=== PATIENT | female | born 1955 | race Caucasian/White ===

== ENCOUNTER 2024-08-19 14:03 | Inpatient (IN) | payer MEDICARE, OTHER, SELFPAY ==
[2024-08-19] VITALS (46 sets, daily range): BP systolic 105–142; BP diastolic 66–110; BMI 22.0
[2024-08-19 09:48] LABS: COVID-19 Antigen Positive (Negative)
[2024-08-19 09:54] LABS: % Basophils 0.3 % (0-2); % Eosinophils 0.9 % (0-6); % Immature Granulocytes 0.2 % (0-0.5); % Lymphocytes 29.4 % (20.5-51.1); % Monocytes 14.3 % (1.7-9.3); % Neutrophils 54.9 % (42.2-75.2); Absolute Eosinophils 0.1 10^3/uL (0-0.7); Absolute Lymphocytes 1.9 10^3/uL (1.2-3.4); Absolute Monocytes 0.9 10^3/uL (0.1-0.6); Absolute Neutrophils 3.5 10^3/uL (1.4-6.5); Hemoglobin 12.1 g/dL (12.0-16.0); Mean Corp Hgb Conc. 32.7 g/dL (33.0-37.0); Mean Corpuscular Hgb 24.7 pg (27.0-31.0); Mean Corpuscular Volume 75.5 fL (81.0-99.0); Mean Platelet Volume 9.4 fL (7.4-10.4); Nucleated Red Blood Cells % 0 %; Platelet Count 198 10^3/uL (130-400); Red Cell Dist. Width 16.5 % (11.5-14.5); White Blood Cell Count 6.4 10^3/uL (4.8-10.8)
[2024-08-19 09:58] LABS: ALT (SGPT) 39 U/L (0-35); AST (SGOT) 65 U/L (14-36); Albumin 3.3 g/dl (3.5-5.0); Alkaline Phosphatase 376 U/L (38-126); Blood Urea Nitrogen 16 mg/dl (7-17); Calcium 9.2 mg/dl (8.4-10.2); Carbon Dioxide 23 mmol/L (22-30); Chloride 101 mmol/L (98-107); Glucose 107 mg/dl (70-99); Potassium 3.9 mmol/L (3.5-5.1); Sodium 136 mmol/L (135-145); Total Protein 6.4 g/dl (6.3-8.2); eGFR > 60.00
--- NOTE | 2024-08-19 11:40 | ED.GENMED ---
History of Present Illness
<Arnel Rivers PA-C - Last Filed: 08/19/24 13:21>
General
Chief Complaint: Cold/Flu/URI Symptoms
Source: patient
Time Seen by Provider: 08/19/24 10:49
History of Present Illness
History of Present Illness:
69-year-old female with past medical history of iron deficiency anemia and rheumatoid arthritis presenting to the ER with URI-like symptoms over the last 4 weeks, continuous cough which is what prompted her to come to the ER for further evaluation.
notes that at nighttime patient seems to have a gurgling sound while she is breathing. Patient is unaware of any fevers and is otherwise denying any chest pain, shortness of breath, palpitations, sputum production, hemoptysis, lower
extremity edema or any other concerns. Patient did not do any home testing, had been sick previously with similar symptoms but his current recovered.
Past History
<Arnel Rivers PA-C - Last Filed: 08/19/24 13:21>
Past History
ED Past Medical History: Other (Rheumatoid arthritis, iron deficiency anemia)
Review of Systems
<Arnel Rivers PA-C - Last Filed: 08/19/24 13:21>
Review of Systems
All Other Systems: ROS reviewed and negative except as documented in HPI and ROS
Phy Exam
<Arnel Rivers PA-C - Last Filed: 08/19/24 13:21>
Physical Exam
Physical Exam:
GENERAL: Alert , in no apparent distress
HEAD: Normocephalic atraumatic
EYE: clear conjunctiva,
NECK: Supple, no significant adenopathy.
ENT: o/p clr, mmm.
CARDIAC: Tachycardic rate and rhythm, irregular.
LUNGS: Clear breath sounds bilaterally, no acute respiratory distress, no wheezes/rales/rhonchi, persistent nonproductive cough
ABDOMEN: Soft, without focal tenderness, no r/g, no cvat
NEUROLOGICAL: Alert and oriented
SKIN: Warm and dry, skin intact.
MUSCULOSKELETAL: No edema, well perfused.
PSYCH: Normal and appropriate interaction.
Scores
<Arnel Rivers PA-C - Last Filed: 08/19/24 13:21>
[id number] Score for Afib Stroke Risk
Age in Years (65=0, 65-74=1, >/=75=2): 65-74
Sex (Female=+1): Female
Congestive Heart Failure History (Yes=+1): No
Hypertension History (Yes=+1): No
Stroke/TIA/Thromboembolism History (Yes=+2): No
Vascular Disease History (Yes=+1): No
Diabetes Mellitus (Yes=+1): No
Score: 2
Anticoagulation Recommendations: Recommend anticoagulation (as validated in nonvalvular fib)
Heart Failure Risk
Heart Failure Risk Score: Not Applicable
Heart Score for Chest Pain Patients
STEMI patient?: Not applicable
Withdrawal Assessment of Alcohol
Withdrawal Assessment Completed?: Not applicable
<Ray De Jesus MD - Last Filed: 08/19/24 15:29>
[id number] Score for Afib Stroke Risk
Score: 2
Anticoagulation Recommendations: Recommend anticoagulation (as validated in nonvalvular fib)
Course
<Arnel Rivers PA-C - Last Filed: 08/19/24 13:21>
Orders/Labs/Results
Orders:
Orders
08/19/24 09:22
Electrocardiogram (*1) Urgent
Reason for Study: Abdominal Pain
EKG- Treatment ONCE
08/19/24 09:30
COVID-19 Antigen Urgent
Source: Nasal Swab
Complete Blood Count/With Diff Urgent
Comprehensive Metabolic Panel Urgent
Free T4 Urgent
Hepatitis C Antibody Urgent
Comment: ADD ONB
LDH Urgent
Comment: ADD ON
TSH Reflex To Free T4 Urgent
Comment: ADD ON
Influenza A+B Rapid Molecular Urgent
YULISSA Source: Nasal Swab
Specimen Description:
08/19/24 10:49
CR Chest - 2 Views Urgent
Comment:
Reason For Exam: cough x 4 weeks
08/19/24 11:01
Electrocardiogram (*1) Urgent
Reason for Study: Atrial Fibrillation
EKG- Treatment ONCE
08/19/24 11:37
Diltiazem 125 mg/125 ml Nss [Cardizem] 125 mg in 125 ml IV NOW
Initial dose in mg/hr, then titrate:: 5
Titrate to keep:: Heart rate 80-100 bpm
Titrate by mg/hr:: 5 mg/hr
Frequency of titrations (minutes):: 15
Maximum dose in mg/hr:: 15
Diltiazem HCl [Cardizem] 5 mg IV NOW STA
08/19/24 11:45
NT-proBNP Urgent
08/19/24 12:00
0.9% Sodium Chloride 500 ml [Nss] 500 ml IV BOLUS
Acetaminophen [Tylenol] 1,000 mg PO NOW STA
08/19/24 12:01
0.9% Sodium Chloride 500 ml [Nss] 500 ml IV BOLUS
08/19/24 12:50
US Abdomen Complete/Upper Urgent
Comment:
Reason For Exam: elevated alk.phos, transaminitis, bilirubinemia
08/19/24 12:54
Diltiazem HCl [Cardizem] 10 mg IV NOW STA
08/19/24 13:08
Direct Bilirubin Stat
GGT [GGTP] Stat
Procalcitonin Stat
PCT Algorithmm Indication: Respiratory
08/19/24 13:10
Add On- LAB Urgent
Tests Added?: LDH, HepC Ab
CARDIOLOGY CONSULT Routine
Consulting Provider: Jethro Tai
Was physician already notified: Yes
Reason for consult: Afib with RVR
08/19/24 13:11
Admit/Transfer Patient As Directed
Co-Sign Provider:
Level of Care: Inpatient admission
Assign to:: IVU
Physician / Group: Hospitalist
Diagnosis: Afib with RVR
Reason for Hospitalization: Afib with RVR
Expected length of stay greater than two midnights?: Yes
ELOS- Estimated Length of Stay in days: 5
I certify the patient meets the requirements for IP care: Yes
PRN Pain Medication Management As Directed
May give lesser potent ordered pain med per pt: Yes
preference::
Protocol:: Medication orders for pain may be administered in a
manner that supports deferring to patient preference
when the pt is:
- Requesting an ordered lesser potent pain medication.
Least to most potent pain medications are defined
as: acetaminophen < NSAID < tramadol < opioids
(morphine, oxycodone, hydromorphone).
- Requesting a lesser dose of the same medication IF
ORDERED.
- Requesting a less intrusive route of administration
if both routes are prescribed by the provider (PO <
IV).
08/19/24 13:12
Code Status As Directed
Resuscitation Status: Do not resuscitate
Reached after discussion with pt or family/Healthcare POA: Yes
08/19/24 13:14
DNR Bracelet Application ONCE
08/19/24 13:16
Add On- LAB Stat
Tests Added?: TSH with reflex FT4
08/19/24 13:19
Add On- LAB Urgent
Tests Added?: troponin
Ipratropium/Albuterol Sulfate [Duoneb] 3 ml INH R Q4HPRN PRN
08/19/24 14:00
Flush (0.9% Sodium Chloride) [Flush (Nss)] See Dose Instructions IV PER PROTOCOL
MethylPREDNISolone PF [Solu-Medrol Pf] 40 mg IV Q12H
08/19/24 16:00
Ipratropium/Albuterol Sulfate [Duoneb] 3 ml INH R QID
08/19/24 19:30
Troponin I Q6H
08/20/24 01:30
Troponin I Q6H
08/20/24 07:30
Troponin I Q6H
Abnormal Lab Results
08/19/24 08/19/24
09:30 13:08
MCV 75.5 L fL
(81.0-99.0)
MCH 24.7 L pg
(27.0-31.0)
MCHC 32.7 L g/dL
(33.0-37.0)
RDW 16.5 H %
(11.5-14.5)
Absolute Monos (auto) 0.9 H 10^3/uL
(0.1-0.6)
Monocytes % 14.3 H %
(1.7-9.3)
Creatinine 0.4 L mg/dL
(0.6-1.0)
Glucose 107 H mg/dl
(70-99)
Total Bilirubin 3.0 H mg/dl
(0.2-1.3)
Direct Bilirubin 1.3 H mg/dl
(0.0-0.4)
GGT 76 H U/L
(12-43)
AST 65 H U/L
(14-36)
ALT 39 H U/L
(0-35)
Alkaline Phosphatase 376 H U/L
(38-126)
Albumin 3.3 L g/dl
(3.5-5.0)
TSH (Reflex) < 0.02 L uIU/ml
(0.47-4.68)
SARS-CoV-2 Antigen Positive A
(Negative)
08/19/24 09:30
08/19/24 09:30
Vital Signs
Initial and Last Documented VS:
Initial Vital Signs
Temp Pulse Resp BP Pulse Ox
98.1 F 105 16 113/84 98
08/19/24 09:20 08/19/24 09:20 08/19/24 09:20 08/19/24 09:20 08/19/24 09:20
Last Documented Vital Signs
Temp Pulse Resp BP Pulse Ox
98.1 F 146 20 129/79 92
08/19/24 09:20 08/19/24 15:15 08/19/24 15:15 08/19/24 15:15 08/19/24 15:15
<Ray De Jesus MD - Last Filed: 08/19/24 15:29>
Orders/Labs/Results
Orders:
Orders
08/19/24 09:22
Electrocardiogram (*1) Urgent
Reason for Study: Abdominal Pain
EKG- Treatment ONCE
08/19/24 09:30
COVID-19 Antigen Urgent
Source: Nasal Swab
Complete Blood Count/With Diff Urgent
Comprehensive Metabolic Panel Urgent
Free T4 Urgent
Hepatitis C Antibody Urgent
Comment: ADD ONB
LDH Urgent
Comment: ADD ON
TSH Reflex To Free T4 Urgent
Comment: ADD ON
Influenza A+B Rapid Molecular Urgent
YULISSA Source: Nasal Swab
Specimen Description:
08/19/24 10:49
CR Chest - 2 Views Urgent
Comment:
Reason For Exam: cough x 4 weeks
08/19/24 11:01
Electrocardiogram (*1) Urgent
Reason for Study: Atrial Fibrillation
EKG- Treatment ONCE
08/19/24 11:37
Diltiazem 125 mg/125 ml Nss [Cardizem] 125 mg in 125 ml IV NOW
Initial dose in mg/hr, then titrate:: 5
Titrate to keep:: Heart rate 80-100 bpm
Titrate by mg/hr:: 5 mg/hr
Frequency of titrations (minutes):: 15
Maximum dose in mg/hr:: 15
Diltiazem HCl [Cardizem] 5 mg IV NOW STA
08/19/24 11:45
NT-proBNP Urgent
08/19/24 12:00
0.9% Sodium Chloride 500 ml [Nss] 500 ml IV BOLUS
Acetaminophen [Tylenol] 1,000 mg PO NOW STA
08/19/24 12:01
0.9% Sodium Chloride 500 ml [Nss] 500 ml IV BOLUS
08/19/24 12:50
US Abdomen Complete/Upper Urgent
Comment:
Reason For Exam: elevated alk.phos, transaminitis, bilirubinemia
08/19/24 12:54
Diltiazem HCl [Cardizem] 10 mg IV NOW STA
08/19/24 13:08
Direct Bilirubin Stat
GGT [GGTP] Stat
Procalcitonin Stat
PCT Algorithmm Indication: Respiratory
08/19/24 13:10
Add On- LAB Urgent
Tests Added?: LDH, HepC Ab
CARDIOLOGY CONSULT Routine
Consulting Provider: Jethro Tai
Was physician already notified: Yes
Reason for consult: Afib with RVR
08/19/24 13:11
Admit/Transfer Patient As Directed
Co-Sign Provider:
Level of Care: Inpatient admission
Assign to:: IVU
Physician / Group: Hospitalist
Diagnosis: Afib with RVR
Reason for Hospitalization: Afib with RVR
Expected length of stay greater than two midnights?: Yes
ELOS- Estimated Length of Stay in days: 5
I certify the patient meets the requirements for IP care: Yes
PRN Pain Medication Management As Directed
May give lesser potent ordered pain med per pt: Yes
preference::
Protocol:: Medication orders for pain may be administered in a
manner that supports deferring to patient preference
when the pt is:
- Requesting an ordered lesser potent pain medication.
Least to most potent pain medications are defined
as: acetaminophen < NSAID < tramadol < opioids
(morphine, oxycodone, hydromorphone).
- Requesting a lesser dose of the same medication IF
ORDERED.
- Requesting a less intrusive route of administration
if both routes are prescribed by the provider (PO <
IV).
08/19/24 13:12
Code Status As Directed
Resuscitation Status: Do not resuscitate
Reached after discussion with pt or family/Healthcare POA: Yes
08/19/24 13:14
DNR Bracelet Application ONCE
08/19/24 13:16
Add On- LAB Stat
Tests Added?: TSH with reflex FT4
08/19/24 13:19
Add On- LAB Urgent
Tests Added?: troponin
Ipratropium/Albuterol Sulfate [Duoneb] 3 ml INH R Q4HPRN PRN
08/19/24 14:00
Flush (0.9% Sodium Chloride) [Flush (Nss)] See Dose Instructions IV PER PROTOCOL
MethylPREDNISolone PF [Solu-Medrol Pf] 40 mg IV Q12H
08/19/24 16:00
Ipratropium/Albuterol Sulfate [Duoneb] 3 ml INH R QID
08/19/24 19:30
Troponin I Q6H
08/20/24 01:30
Troponin I Q6H
08/20/24 07:30
Troponin I Q6H
Abnormal Lab Results
08/19/24 08/19/24
09:30 13:08
MCV 75.5 L fL
(81.0-99.0)
MCH 24.7 L pg
(27.0-31.0)
MCHC 32.7 L g/dL
(33.0-37.0)
RDW 16.5 H %
(11.5-14.5)
Absolute Monos (auto) 0.9 H 10^3/uL
(0.1-0.6)
Monocytes % 14.3 H %
(1.7-9.3)
Creatinine 0.4 L mg/dL
(0.6-1.0)
Glucose 107 H mg/dl
(70-99)
Total Bilirubin 3.0 H mg/dl
(0.2-1.3)
Direct Bilirubin 1.3 H mg/dl
(0.0-0.4)
GGT 76 H U/L
(12-43)
AST 65 H U/L
(14-36)
ALT 39 H U/L
(0-35)
Alkaline Phosphatase 376 H U/L
(38-126)
Albumin 3.3 L g/dl
(3.5-5.0)
TSH (Reflex) < 0.02 L uIU/ml
(0.47-4.68)
SARS-CoV-2 Antigen Positive A
(Negative)
08/19/24 09:30
08/19/24 09:30
Vital Signs
Initial and Last Documented VS:
Initial Vital Signs
Temp Pulse Resp BP Pulse Ox
98.1 F 105 16 113/84 98
08/19/24 09:20 08/19/24 09:20 08/19/24 09:20 08/19/24 09:20 08/19/24 09:20
Last Documented Vital Signs
Temp Pulse Resp BP Pulse Ox
98.1 F 146 20 129/79 92
08/19/24 09:20 08/19/24 15:15 08/19/24 15:15 08/19/24 15:15 08/19/24 15:15
<Arnel Rivers PA-C - Last Filed: 08/19/24 13:21>
MDM/Problems Addressed
Differential Diagnosis Includes:
COVID, flu, RSV, other viral etiology, pneumonia, EKG done in triage shows atrial fibrillation with rapid ventricular rate
MDM/Problems Addressed:
69-year-old female presenting to the ER for upper respiratory like symptoms over the last 4 weeks, not improving at home noting a continued today. Labs and COVID/flu testing were initiated in triage and patient did test positive for COVID. She
also was found to be in a new onset atrial fibrillation with rapid ventricular rate. I do suspect her COVID infection is the likely culprit. Due to her tachycardia decision was made to rate control with Cardizem. Patient also has a mild
transaminitis which is likely also related to her COVID infection. Chest x-ray does show trace right pleural effusion. 500 cc fluid bolus ordered for additional rate control. Plan to admit for further evaluation and cardiology consultation.
Patient was also noting left shoulder pain which is secondary to her rheumatoid arthritis and requesting something for pain. 1 g of Tylenol ordered. Will avoid NSAIDs due to newly diagnosed A-fib and patient will likely need some form of
anticoagulation.
<Arnel Rivers PA-C - Last Filed: 08/19/24 13:21>
*Radiology
Radiology exam reviewed: radiology read reviewed
*Pulse Oximetry
Patient hypoxic: no
*EKG
Interpreted by ED Provider?: Yes
Heart Rate: 178
Rate: tachycardiac
Rhythm: a-fib
[place]: normal axis
*[employer] Operator Interpretation
Rate: tachycardiac
Rhythm: a-fib
*Critical Care Note
Total Time (30-74mins, 75-104mins- exclusive of procedures): 30
comment:
Critical care statement: A total of 30 minutes of critical care time was provided for this patient. This includes management of unstable vital signs, evaluation of the patient at bedside, reviewing the patient's pertinent medical records, discussion
with consultants, review of old EKGs and review of pertinent medical records. This time with separate from time utilized to perform the aforementioned documented procedures
<Arnel Rivers PA-C - Last Filed: 08/19/24 13:21>
Patient Management
Discussion with other providers: Hospitalist
Escalation/DeEscalation of care consider admission/obs:
Hospitalist team accepts for continued evaluation and treatment
ED Attending Note
<Arnel Rivers PA-C - Last Filed: 08/19/24 13:21>
-
Portions of this chart may have been created with voice recognition software.� Occasional wrong word or��sound alike� substitutions may have occurred due to the inherent limitations of voice recognition software.
<Ray De Jesus MD - Last Filed: 08/19/24 15:29>
ED Attending Note
Patient seen and examined by attending physician: Yes
ED Attending Note:
Patient presents to ED secondary to 1 month history of cold-like symptoms, consisting of persistent cough with decreased appetite. Denies fever or chills. Denies nausea, vomiting, or diarrhea. Denies chest pain. Denies chest palpitations.
Denies dizziness. Patient's also has similar symptoms, which now has resolved. Upon arrival in ED, patient is found to be in rapid atrial fibrillation.
COVID-19 test positive.
Chest x-ray report reviewed.
Patient given IV fluid bolus along with Cardizem bolus followed by infusion, with mild improvement heart rate. Patient's new onset rapid atrial fibrillation, likely secondary to ongoing URI with component of dehydration. Will defer anticoagulation
to admitting team.
Critical care statement: A total of 40 minutes of critical care time was provided for this patient. This includes management of unstable vital signs, evaluation of the patient at bedside, reviewing the patient's pertinent medical records, review of
old EKGs and review of pertinent medical records. This time with separate from time utilized to perform the aforementioned documented procedures
Discharge Plan
Departure
Patient Disposition: Admit
Date of Disposition: 08/19/24
Time of Disposition: 11:40
Presentation/result/management discussed w/ accepting MD/DO: Hospitalist
Discharge Problem:
Atrial fibrillation with RVR, Transaminitis, COVID-19
Interventions
Interventions:
*Risk Screen - Suicide Last Done: 08/19/24 09:20
*General Assessment Last Done: 08/19/24 11:33
*Neglect/Abuse Screening Last Done: 08/19/24 09:20
ED- Fall Risk Assessment Last Done: 08/19/24 11:33
*ED COVID-19 Vaccine History Last Done: 08/19/24 11:33
ED- Pulmonary Assessment Last Done: 08/19/24 11:33
[2024-08-19] MEDS: CARDIZEM 5 MG IV (11:46)
[2024-08-19] MEDS: CARDIZEM 125 IV ×2 (11:47→22:16)
[2024-08-19] MEDS: NSS 500 IV (12:02)
[2024-08-19] MEDS: TYLENOL 1000 MG PO (12:02)
[2024-08-19 12:19] LABS: NT-proBNP 1340 pg/ml
[2024-08-19] MEDS: CARDIZEM 10 MG IV (13:11)
--- NOTE | 2024-08-19 13:16 | HPS.HSE ---
Addendum entered and electronically signed by Carlos Kate MD 08/19/24 16:33:
#Thyroid storm
[address] 71
Methimazole, cont steroids, propranolol
Endo consult
Original Note:
Family Physician
-
Family Physician: Celia Daly
Chief Complaint
-
cough
History of Present Illness
69yo F with PMHx of cholecystectomy, RA not on any meds came with 4 weeks of generalized weakness, cough, initially with fevers. Now still significant mucus production. no chest pain reported. FOund with Wale in ED. COVID-19 test also positive
Medical History
Past Medical History
Past Medical History: Reports Other (see HPI)
Past Surgical History: Reports Other
Additional Past Surgical History:
See HPI
Social History
Tobacco: Non-smoker
Alcohol: None
Drug: None
Family History
Family History: Not pertinent
Allergies / Home Medications
Allergies reflects when Allergies were last updated in [facility].
Home Medications with original date entered in [facility]
Allergy/Medication List:
Allergies
Allergy/AdvReac Type Severity Reaction Status Date / Time
cephalexin Allergy Hives Verified 08/19/24 09:19
infliximab Allergy Hives Verified 08/19/24 09:19
Home Medications
No Meds [No Current Medications] 08/19/24
Review of Systems
-
History Source: Patient
A 12 point ROS was completed and negative except as noted: Yes
Respiratory: Reports See HPI
Cardiac: Denies Chest Pain or Palpitations
Physical Exam
Vital Signs
Vital Signs
Temp Pulse Resp BP Pulse Ox
98.1 F 157 25 142/82 95
08/19/24 09:20 08/19/24 12:15 08/19/24 12:15 08/19/24 12:15 08/19/24 12:15
Physical Exam
General: No Apparent Distress
HEENT: NormoCephalic
Respiratory: Decreased Breath Sounds (b/l)
Cardiac: S1/S2, Irregular Rhythm and Tachycardia
GI: Soft, Non Tender and Non Distended
Genito-urinary: No costovertebral tender
Musculoskeletal: No Clubbing, No Cyanosis and No Edema
Skin: Warm; No Dry or Rash
Neuro: Awake, Alert, Oriented and AO x 3
Psych: Calm
Laboratory Results
-
08/19/24 09:30
08/19/24 09:30
Laboratory Results
Total Bilirubin 3.0 mg/dl (0.2-1.3) H 08/19/24 09:30
AST 65 U/L (14-36) H 08/19/24 09:30
ALT 39 U/L (0-35) H 08/19/24 09:30
Alkaline Phosphatase 376 U/L (38-126) H 08/19/24 09:30
Data Reviewed
-
Diagnostic Radiology: Report Reviewed by me
Lab Data: Labs Reviewed by me
Impression/Plan
-
A/P:
#New onset Afib with RVR
stareted cardizem drip, if poor control - might need amiodarone
Add heparin drip
Cardiology consult
telemetry, Echo
serial troponin
Elevated proBNP to 1340, but with marginal low BP - possibly congestion 2/2 Afib. Will not start Lasix until HR controlled
Influenza neg
check TSH
#COVID-19 with cough and reactive airway disease
without pneumonia on XR
unclear start date, will not start paxlovid
check procalcitonin
start steroids, bronchodilators, antitussives and mucolytics
#Hx of RA
in remission not on meds
#microcytosis
check iron studies
#Elevated alk.phos
#Transaminitis
#Bilirubinemia
suspect 2/2 viral disease
check direct bili, LDH, RUQ US,HepC Ab
patient without RUQ pain
follow LFT
DVT ppx hep drip
DNR/DNI - discussed in details with patient
I have spent at least 78min admitting the patient, reviewing chart, test results, communication with consultants and direct patient care
[2024-08-19 13:39] LABS: Direct Bilirubin 1.3 mg/dl (0.0-0.4); GGTP 76 U/L (12-43)
[2024-08-19 13:43] LABS: LDH 216 U/L (120-246)
--- NOTE | 2024-08-19 13:43 | CON.CAR ---
Addendum entered and electronically signed by Jethro Tai MD 08/19/24 16:59:
I saw and examined the patient.
The RATE ENGINEER's note was reviewed and I agree with the note.
Comment: New AFib RVR in setting of COVID-19 infection (w/o pneumonia) and newly found labs c/w hyperthyroidism. Not dramatically symptomatic from the fast AFib.
Suggest:
Treat COVID-19
Treat hyperthyroidism
Add Eliquis (if pt willing and co-pay acceptable). She uses a fair amount of NSAIDs for joint pain she attributes to her rheumatoid arthritis.
Use propranolol for rate control
Echo once rate better and perhaps once COVID19 cleared
Original Note:
Consultation
Consultation Request
Date/Time Consultation Requested: 08/19/2024 13:10
Date/Time Consultation Performed: 08/19/2024 13:40
Requesting Provider: Dr. Kate
Performing Provider: REGINO Eckert for Dr. Tai
Reason for Consultation: Atrial fibrillation with rapid ventricular response
Medical History
-
Chief Complaint: Weakness
History of Present Illness:
Linda Wall is a 69-year-old female with RA (previously on Remicade), who presented to the emergency department with a chief complaint of weakness. She endorsed associated cough and fevers. She was found to be positive for COVID-19. She has
been feeling unwell for more than 3 weeks. EKG showed atrial fibrillation with rapid ventricular response. Cardiology was consulted for arrhythmia management.
Past Medical History
Past Medical History: Other (RA)
Past Surgical History: Cholecystectomy
Social History
Tobacco: Non-Smoker
Alcohol: None
Drug: None
Personal:
Living: With Family
Family History
Family History: Reviewed & Not Pertinent
Allergies / Home Medications
Allergy/AdvReac Type Severity Reaction Status Date / Time
cephalexin Allergy Hives Verified 08/19/24 09:19
infliximab Allergy Hives Verified 08/19/24 09:19
�Medication �Instructions �Recorded �Confirmed �Type
No Meds [No Current Medications] 08/19/24 08/19/24 History
Review of Systems
-
History Source: Patient
All other systems: Negative unless noted
Constitutional: Fever and Fatigue
EENT: No Symptoms
Respiratory: Cough
Cardiac: No Symptoms
Abdomen/GI: No Symptoms
: No Symptoms
Musculoskeletal: No Symptoms
Skin: No Symptoms
Neurological: No Symptoms
Endocrine: No Symptoms
Hematologic/Lymphatic: No Symptoms
Physical Exam
Vital Signs
Temp Pulse Resp BP Pulse Ox
98.1 F 157 25 142/82 95
08/19/24 09:20 08/19/24 12:15 08/19/24 12:15 08/19/24 12:15 08/19/24 12:15
Lab Results
08/19/24 09:30
08/19/24 09:30
Troponin I Cancelled 08/19/24 13:30
Nmg-T-Mkvpfvalacu Pept 1340 pg/ml 08/19/24 11:45
Physical Exam
General: Well Developed, Well Nourished and Comfortable
HEENT: Other (Mask covering her mouth and nose)
Respiratory: Clear
Cardiac: S1/S2 and Irregular Rhythm; Negative Peripheral Edema
Breast: Deferred by me
GI: Soft, Non Tender, Non Distended and Normal Bowel Sounds
Rectal: Deferred by Provider
Genito-urinary: No Costovertebral Tender
Musculoskeletal: No Clubbing, No Cyanosis and No Edema
Skin: Warm and Dry
Neuro: AO x 3
Hematologic/Lymphatic: No Lymphadenopathy
Psych: Calm
Impression / Plan
-
IMPRESSION/PLAN: 69F with RA in remission (previously on Remicade), who presented to the emergency department with a chief complaint of weakness -> COVID-19 + & AF with RVR
Atrial fibrillation with rapid ventricular response
-Rates elevated, increase diltiazem gtt
-Oral Anticoagulation: None prior to arrival, started on heparin by primary, eventual transition to apixaban 5 mg twice daily
-[id number]: score at least 2 (age 65-74, female gender)
-Echo after rate control
Hyperthyroidism, per primary
COVID-19, acute, per primary
RA, on remission, no longer on Remicade
Transaminitis, bilirubinemia, likely in the setting of viral illness, per primary
Data Reviewed
-
EKG: Report Reviewed by me
Radiology: Image Personally Visualized and interpreted
[2024-08-19] MEDS: SOLU-MEDROL PF 40 MG IV (14:04)
[2024-08-19 14:11] LABS: Procalcitonin < 0.05 ng/ml (0.0-0.25)
[2024-08-19 15:00] LABS: TSH Reflex To Free T4 < 0.02 uIU/ml (0.47-4.68)
[2024-08-19 15:18] LABS: Hepatitis C Antibody Negative (Negative)
[2024-08-19] MEDS: SPIRIVA RESPIMAT 2.5 MCG INH ×2 (15:28→15:34)
[2024-08-19] MEDS: ProAIR HFA INHALER INH ×2 (15:28→15:34)
[2024-08-19 15:29] LABS: Free T4 > 6.99 ng/dl (0.78-2.19)
[2024-08-19] MEDS: LOPRESSOR 5 MG IV (15:29)
[2024-08-19] MEDS: TAPAZOLE 20 MG PO ×2 (16:21→22:08)
[2024-08-19] MEDS: INDERAL 20 MG PO ×2 (16:21→22:08)
[2024-08-19 18:23] LABS: Hematocrit 36.2 % (37.0-47.0); Hemoglobin 11.8 g/dL (12.0-16.0); Mean Corp Hgb Conc. 32.6 g/dL (33.0-37.0); Mean Corpuscular Hgb 24.7 pg (27.0-31.0); Mean Corpuscular Volume 75.9 fL (81.0-99.0); Mean Platelet Volume 9.5 fL (7.4-10.4); Platelet Count 186 10^3/uL (130-400); Red Blood Cell Count 4.77 10^6/uL (4.20-5.40); Red Cell Dist. Width 16.5 % (11.5-14.5); White Blood Cell Count 4.7 10^3/uL (4.8-10.8)
[2024-08-19 18:30] LABS: APTT 31.3 Sec (23.4-35.0)
[2024-08-19 18:42] LABS: Troponin I < 0.012 ng/ml
[2024-08-19] MEDS: MUCINEX 600 MG PO (19:43)
[2024-08-19] MEDS: HEPARIN 25000 UNITS/250 ML IV (19:45)
[2024-08-19] MEDS: ProAIR HFA INHALER 2 PUFF INH (20:08)
[2024-08-20] VITALS (49 sets, daily range): BP systolic 94–127; BP diastolic 55–91; BMI 22.6
--- NOTE | 2024-08-20 01:31 | PTCARENOTE ---
Pt arrived to ICU and ambulated to bed without issue, Afib on the monitor, hep gtt and cardizem gtt running per orders, pt denies chest pain and SOB at this time, 93% RA, skin intact, pt oriented to room and call culver in reach.
[2024-08-20] MEDS: SOLU-MEDROL PF 40 MG IV (02:25)
[2024-08-20 02:41] LABS: % Immature Granulocytes 0.2 % (0-0.5); % Lymphocytes 35.9 % (20.5-51.1); % Monocytes 4.7 % (1.7-9.3); % Neutrophils 59.2 % (42.2-75.2); Absolute Lymphocytes 1.5 10^3/uL (1.2-3.4); Absolute Monocytes 0.2 10^3/uL (0.1-0.6); Absolute Neutrophils 2.5 10^3/uL (1.4-6.5); Hematocrit 33.8 % (37.0-47.0); Mean Corp Hgb Conc. 32.5 g/dL (33.0-37.0); Mean Corpuscular Hgb 24.7 pg (27.0-31.0); Mean Corpuscular Volume 75.8 fL (81.0-99.0); Nucleated Red Blood Cells % 0 %; Platelet Count 198 10^3/uL (130-400); Red Blood Cell Count 4.46 10^6/uL (4.20-5.40); Red Cell Dist. Width 16.3 % (11.5-14.5); White Blood Cell Count 4.3 10^3/uL (4.8-10.8)
[2024-08-20 02:51] LABS: APTT 34.4 Sec (23.4-35.0)
[2024-08-20 02:58] LABS: ALT (SGPT) 39 U/L (0-35); AST (SGOT) 54 U/L (14-36); Alkaline Phosphatase 319 U/L (38-126); Blood Urea Nitrogen 27 mg/dl (7-17); Calcium 9.1 mg/dl (8.4-10.2); Carbon Dioxide 24 mmol/L (22-30); Chloride 101 mmol/L (98-107); Estimated Creatinine Clearance 64 ml/min; Glucose 320 mg/dl (70-99); Iron 39 ug/dl (37-170); Phosphorus 3.8 mg/dl (2.5-4.5); Potassium 4.1 mmol/L (3.5-5.1); Sodium 134 mmol/L (135-145); Total Bilirubin 2.3 mg/dl (0.2-1.3); eGFR > 60.00
[2024-08-20 03:03] LABS: INR 1.47
[2024-08-20 03:06] LABS: Percent Saturation 12 % (20-50); Total Iron Binding Capacity 307 ug/dl (265-497)
[2024-08-20 03:17] LABS: Troponin I < 0.012 ng/ml
[2024-08-20] MEDS: TAPAZOLE 20 MG PO ×4 (03:18→21:16)
[2024-08-20 04:06] LABS: Ferritin 33.9 ng/ml (11.1-264.0)
[2024-08-20] MEDS: CARDIZEM 125 IV (06:12)
--- NOTE | 2024-08-20 06:21 | PTCARENOTE ---
pt ambulated to toilet without issue, remains on hep gtt and cardizem gtt, call culver in reach
[2024-08-20] MEDS: SPIRIVA RESPIMAT 2.5 MCG 2 PUFF INH (08:05)
[2024-08-20] MEDS: ProAIR HFA INHALER 2 PUFF INH ×4 (08:05→20:12)
--- NOTE | 2024-08-20 08:50 | PTCARENOTE ---
Assumed care of pt at 0715 following shift report. Respiratory illness precautions maintained. Pt awake and resting quietly in bed. Ox3, occasional inappropriate comment noted. Heparin and Cardizem gtts infusing as ordered. Pt remains in AFib w/ HR
80-90's. Pt on O2 at 2l/min w/ POx 98%. - placed on RA w/ POx 93-95%. Pt denies SOB. Occasional dry counter cutter cough noted. Pt OOB to BR to void/have BM. Gait noted to be slightly unsteady at times- assistance provided. Assisted w/ AM hygiene and then to
bedside chair. Breakfast ordered. Labs drawn. AM Meds administered. Call culver w/in pt reach and pt instructed to call and wait for staff assistance prior getting out of chair- pt verbalized understanding. Chair exit alarm in use.
[2024-08-20] MEDS: PROTONIX 40 MG PO (08:51)
[2024-08-20] MEDS: MUCINEX 600 MG PO ×2 (08:51→19:51)
[2024-08-20] MEDS: INDERAL 20 MG PO (08:51)
[2024-08-20 09:35] LABS: Troponin I < 0.012 ng/ml
[2024-08-20 09:41] LABS: APTT 35.4 Sec (23.4-35.0)
--- NOTE | 2024-08-20 10:40 | W.PN.HOSP.TC ---
Today's Communication/Plan
-
switch to prednisone
cont methimazole
HR mgmt as per cardio
Assessment / Plan
Assessment / Plan
69yo F with PMHx of cholecystectomy, RA not on any meds came with 4 weeks of generalized weakness, cough, found with A.flutter in ED. COVID-19 and thyroid storm
A/P:
#Thyroid storm
Mendoza-Wartkofsky 70
Methimazole, cont steroids, propranolol
Endo consult
#New onset Afib with RVR
heparin drip
Cardiology consult
telemetry, Echo
Elevated proBNP to 1340, but with marginal low BP - possibly congestion 2/2 Afib. Will not start Lasix until HR controlled
Influenza neg
#COVID-19 with cough and reactive airway disease
without pneumonia on XR
unclear start date, will not start paxlovid
check procalcitonin
start steroids, bronchodilators, antitussives and mucolytics
#Hx of RA
in remission not on meds
#REBA
iron as outpatient, recommend EGD and colonoscopy - GI referral added
#Elevated alk.phos
#Transaminitis
#Mixed Bilirubinemia
suspect 2/2 viral disease
LDH WNL
RUQ US without significant abnormality
HepC Ab neg
patient without RUQ pain
follow LFT
DVT ppx hep drip
DNR/DNI - discussed in details with patient
I have spent at least 58min admitting the patient, reviewing chart, test results, communication with consultants and direct patient care
Anticipated Discharge: > 48 hours
Subjective/Interval History
-
Date of Service: August 20, 2024
Objective Data
-
Labs:
Laboratory Results
08/20/24 08/20/24 08/20/24
02:21 06:00 09:02
WBC 4.3 L
Hgb 11.0 L
Hct 33.8 L
Plt Count 198
PT 18.0 H Cancelled
INR 1.47 Cancelled
APTT 34.4 35.4 H
Sodium 134 L
Potassium 4.1
Chloride 101
Carbon Dioxide 24
BUN 27 H
Creatinine 0.5 L
Glucose 320 H
Calcium 9.1
Total Bilirubin 2.3 H
AST 54 H
ALT 39 H
Alkaline Phosphatase 319 H
08/20/24
16:00
WBC
Hgb
Hct
Plt Count
PT
INR
APTT Pending
Sodium
Potassium
Chloride
Carbon Dioxide
BUN
Creatinine
Glucose
Calcium
Total Bilirubin
AST
ALT
Alkaline Phosphatase
Vital Signs:
Vital Signs
Temp Pulse Resp BP Pulse Ox
97.2 F 91 16 124/91 96
08/20/24 01:20 08/20/24 08:51 08/20/24 08:13 08/20/24 08:51 08/20/24 08:13
I&O
08/19/24 08/20/24 08/21/24
06:59 06:59 06:59
Intake Total 194 / 217 334 / 334
Output Total 0 / 0
Balance 194 / 217 334 / 334
Physical Exam
-
General: No Apparent Distress
HEENT: Normocephalic
Respiratory: Clear to Auscultation
Cardiac: Irregular Rhythm
GI: Soft, Nontender and Nondistended
Musculoskeletal: No Clubbing, No Cyanosis and No Edema
Neuro: Awake, Alert, Oriented and AO x 3
Psych: Calm
--- NOTE | 2024-08-20 11:17 | W.PN.CD ---
Today's Communication / Plan
-
Stop IV heparin
Stop IV dilt
Start PO Eliquis
Increase PO Propranolol
Start a PPI as I anticipate she will need some NSAID for her chronic joint pain
Elective echo, can be as outpatient
Impression / Plan
-
Background: 69F with RA in remission (previously on Remicade), who presented to the emergency department with a chief complaint of weakness -> COVID-19 + & AF with RVR
Atrial fibrillation with rapid ventricular response
-Rates better on IV Dilt 15, and low dose propranolol
-Oral Anticoagulation: IV heparin => transition to apixaban 5 mg twice daily
-[id number]: score at least 2 (age 65-74, female gender)
-Echo after rate control and COVID19 cleared
Hyperthyroidism, per primary
COVID-19, acute, per primary
RA, on remission, no longer on Remicade => She is aware of need to minimize NSAID on Eliquis
Transaminitis, bilirubinemia, likely in the setting of viral illness, per primary
Subjective:
No palps, dyspnea a bit better
Physical Exam
Vital Signs/Labs
Vital Signs
Temp Pulse Resp BP Pulse Ox
97.2 F 91 16 124/91 91
08/20/24 01:20 08/20/24 08:51 08/20/24 08:13 08/20/24 08:51 08/20/24 08:30
08/19/24 08/20/24 08/21/24
06:59 06:59 06:59
Actual Weight 52.6 kg
08/20/24 02:21
08/20/24 02:21
PT Cancelled 08/20/24 06:00
INR Cancelled 08/20/24 06:00
APTT 35.4 Sec (23.4-35.0) H 08/20/24 09:02
Magnesium 2.0 mg/dl (1.6-2.3) 08/20/24 02:21
Free T4 > 6.99 ng/dl (0.78-2.19) H 08/19/24 09:30
08/19/24
11:45
Rhs-L-Ybnsmzzdwwy Pept 1340
LAB Results
08/19/24 08/19/24 08/20/24
13:30 18:04 02:21
Troponin I Cancelled < 0.012 < 0.012
08/20/24
09:02
Troponin I < 0.012
Physical Exam
Constitutional: No acute distress
EENT: Anicteric
Cardiovascular: Rhythm/rate is irregular
Respiratory: Respiratory effort normal and Crackles Absent
GI: Soft and Distention absent
Neuro/Psych: AO x 3
Data Reviewed
-
Date of Service: August 20, 2024
--- NOTE | 2024-08-20 11:33 | CM ---
CM following re: discharge planning.
Reviewed pt's chart, met with pt's SO Breezy.
Pt is a 69 year old female, admitted with primary dx of A-Fib with RVR, COVID+.
Pt lives with SO Breezy in a 2SH, 2 steps to enter, has 4 supportive children and 2 stepchildren. pt described herself as independent in all areas [employer], drives, works.
Eliquis 5mg BID rosales checked with pt's pharmacy: 30 days supply - $35.00 co-pay. Free 30 days coupon with $10.00 monthly coupon given to the pt and her SO.
PCP: Celia Daly
Pharmacy: [address]
D/C plan: home with anticipated no needs. SO to transport at discharge.
CM will follow with discharge plan updates as hospitalization progresses
[2024-08-20] MEDS: ELIQUIS 5 MG PO ×2 (12:39→21:15)
[2024-08-20] MEDS: INDERAL 40 MG PO ×3 (12:39→21:15)
--- NOTE | 2024-08-20 12:58 | PTCARENOTE ---
Heparin and Cardizem gtts d/c'ed per order (see worklist intervention for time). Remains in AF w/ HR 80's. Pt using walker to ambulate to BR. Pt with loose brown BM and one episode brown emesis. Pt reports this is 'new' for her. TT to Dr Kate w/
update in V/D. Pt remains on RA w/ POx 91-93%. Denies SOB.
--- NOTE | 2024-08-20 15:48 | PTCARENOTE ---
Pt napping for long intervals. Declined offered lunch. No further vomiting or loose stools. POx down to 87% on RA when asleep- O2 reapplied w/ Pox improved to 94%. No new complaints
--- NOTE | 2024-08-20 17:00 | PTCARENOTE ---
Pt's daughter here to visit. Updated on pt's present condition, plan of care. Dtr voiced concern re: pt's weakness and impaired mobility. PT eval and Tx consult placed per nursing protocol. Pt assisted OOB to chair. Dtr verbalized intent to provide
hygiene/comfort care. Pt remains on O2 at 2l/min w/ POx 96%. No additional changes or complaints received.
--- NOTE | 2024-08-20 20:23 | PTCARENOTE ---
Received patient OOB to chair, daughter at bedside. Patient used walker to ambulate to bathroom, then back to bed. AAOx3, following commands, denying pain. Afib 70s-80s, BP stable. 92% on room air, lung sounds diminished. Abdomen soft, positive
bowel sounds. Voiding in bathroom, skin intact. 2 PIVs patent, WNL. Hourly rounding and patient safety checks ongoing.
[2024-08-21] VITALS (25 sets, daily range): BP systolic 97–135; BP diastolic 46–93; PULSE 102; O2SAT 95; BMI 22.2
[2024-08-21] MEDS: TAPAZOLE 20 MG PO ×4 (04:46→20:15)
[2024-08-21 05:39] LABS: % Basophils 0.1 % (0-2); % Immature Granulocytes 0.3 % (0-0.5); % Lymphocytes 21.4 % (20.5-51.1); % Monocytes 8.8 % (1.7-9.3); % Neutrophils 69.4 % (42.2-75.2); Absolute Lymphocytes 1.9 10^3/uL (1.2-3.4); Absolute Monocytes 0.8 10^3/uL (0.1-0.6); Absolute Neutrophils 6.2 10^3/uL (1.4-6.5); Hematocrit 32.8 % (37.0-47.0); Hemoglobin 10.6 g/dL (12.0-16.0); Mean Corp Hgb Conc. 32.3 g/dL (33.0-37.0); Mean Corpuscular Volume 74.2 fL (81.0-99.0); Nucleated Red Blood Cells % 0 %; Platelet Count 192 10^3/uL (130-400); Red Blood Cell Count 4.42 10^6/uL (4.20-5.40); Red Cell Dist. Width 16.3 % (11.5-14.5); White Blood Cell Count 8.9 10^3/uL (4.8-10.8)
--- NOTE | 2024-08-21 05:40 | PTCARENOTE ---
CHG bath done, pull sheet, pad, and gown changed. Labs sent. Patient maintained on 2 liters nasal cannula overnight for consistent sats 88-89%. Otherwise patient assessment unchanged from previous, call culver within reach.
[2024-08-21 05:57] LABS: ALT (SGPT) 35 U/L (0-35); AST (SGOT) 39 U/L (14-36); Albumin 3.1 g/dl (3.5-5.0); Alkaline Phosphatase 267 U/L (38-126); Blood Urea Nitrogen 48 mg/dl (7-17); Carbon Dioxide 23 mmol/L (22-30); Chloride 101 mmol/L (98-107); Estimated Creatinine Clearance 64 ml/min; Glucose 196 mg/dl (70-99); Potassium 4.2 mmol/L (3.5-5.1); Sodium 133 mmol/L (135-145); Total Bilirubin 1.9 mg/dl (0.2-1.3); Total Protein 6.2 g/dl (6.3-8.2); eGFR > 60.00
[2024-08-21] MEDS: ProAIR HFA INHALER 2 PUFF INH (08:00)
[2024-08-21] MEDS: SPIRIVA RESPIMAT 2.5 MCG 2 PUFF INH (08:00)
--- NOTE | 2024-08-21 08:30 | PTCARENOTE ---
Received pt @ change of shift. Drowsy, awakens to verbal stimuli, oriented x3, denies pain. A fib on monitor. SpO2 94% on RA. Afebrile. +BS, abd soft/nt. Con b/b. No further diarrhea @ this time. Assisted w repositioning in bed and ordering
breakfast. Instructed on how to report care concerns and call culver in reach.
[2024-08-21] MEDS: PROTONIX 40 MG PO (08:38)
[2024-08-21] MEDS: ELIQUIS 5 MG PO ×2 (08:38→20:15)
[2024-08-21] MEDS: DELTASONE 40 MG PO (08:38)
[2024-08-21] MEDS: INDERAL 40 MG PO (08:38)
[2024-08-21] MEDS: MUCINEX 600 MG PO ×2 (08:38→20:15)
--- NOTE | 2024-08-21 10:59 | W.PN.CD ---
Today's Communication / Plan
-
change propranolol to long actinmg daily
trend tele
continue eliquis, trend Hgb (discussed with hospitalist)
check CXR, if pulm edema, agree with IV lasix x1
Impression / Plan
-
Background: 69F with RA in remission (previously on Remicade), who presented to the emergency department with a chief complaint of weakness -> COVID-19, thyroid storm + & new AF with RVR
Atrial fibrillation with rapid ventricular response, new
-s/p diltiazem drip
-change propranolol to long actinmg daily
-Oral Anticoagulation: IV heparin => apixaban 5 mg twice daily
-[id number]: score at least 2 (age 65-74, female gender)
-if remains in A fib at outpatient follow up, will assess for DCCV
Cardiomyopathy, EF 45-50%, also with RV dysfunction
-suspected tachy-induced in setting of A fib with RVR
-will repeat as outpatient
Hyperthyroidism/thyroid storm, per primary and endocrine
COVID-19, acute, per primary
RA, on remission, no longer on Remicade => She is aware of need to minimize NSAID on Eliquis
Transaminitis, bilirubinemia, likely in the setting of viral illness, per primary--improving
Subjective:
Denies palps.
Physical Exam
Vital Signs/Labs
Vital Signs
Temp Pulse Resp BP Pulse Ox
97.9 F 97 16 128/91 92
08/21/24 08:30 08/21/24 10:00 08/21/24 10:00 08/21/24 10:00 08/21/24 10:00
08/20/24 08/21/24 08/22/24
06:59 06:59 06:59
Actual Weight 52.6 kg 51.5 kg
08/21/24 05:02
08/21/24 05:02
PT Cancelled 08/20/24 06:00
INR Cancelled 08/20/24 06:00
APTT Cancelled 08/20/24 16:00
Magnesium 2.0 mg/dl (1.6-2.3) 08/20/24 02:21
Free T4 > 6.99 ng/dl (0.78-2.19) H 08/19/24 09:30
08/19/24
11:45
Yfh-L-Zsbgerabprd Pept 1340
LAB Results
08/19/24 08/19/24 08/20/24
13:30 18:04 02:21
Troponin I Cancelled < 0.012 < 0.012
08/20/24
09:02
Troponin I < 0.012
Physical Exam
Constitutional: No acute distress
EENT: Moist mucous membranes
Cardiovascular: Pedal edema is absent, JVD pressure is normal, Systolic murmur absent and Rhythm/rate is irregular
Respiratory: Labored respirations
Neuro/Psych: AO x 3
Data Reviewed
-
Date of Service: August 21, 2024
EKG: Other (Tele: A fib, avg HR 90s)
Labs: Labs Reviewed by me
[2024-08-21] MEDS: INDERAL LA 160 MG PO (11:53)
[2024-08-21] MEDS: LASIX 40 MG IV (12:00)
--- NOTE | 2024-08-21 13:53 | W.PN.HOSP.TC ---
Today's Communication/Plan
-
Repeat TFT
Card adjusting BB
Lasix for persistent congestion on XR
Assessment / Plan
Assessment / Plan
69yo F with PMHx of cholecystectomy, RA not on any meds came with 4 weeks of generalized weakness, cough, found with A.flutter in ED. COVID-19 and thyroid storm, mild
A/P:
#Thyroid storm
Mendoza-Wartkofsky 70
Methimazole, cont steroids, propranolol
Endo consult
#New onset Afib with RVR
#Acute HFmrEF exacerbation
heparin drip
Cardiology consult
telemetry
Echo: EF 45-50%, Mid to distal anterior and anteroseptal hypokinesis
Elevated proBNP to 1340, but with marginal low BP - possibly congestion 2/2 Afib. Will not start Lasix until HR controlled
Influenza neg
#COVID-19 with cough and reactive airway disease
without pneumonia on XR
unclear start date, will not start paxlovid
check procalcitonin
start steroids, bronchodilators, antitussives and mucolytics
#LLL atelectasis
no fever, no WBC, no cough - no clinical pneumonia
Incentive spirometry
#Hx of RA
in remission not on meds
#REBA
iron as outpatient, recommend EGD and colonoscopy - GI referral added
#Elevated alk.phos
#Transaminitis
#Mixed Bilirubinemia
suspect 2/2 viral disease
LDH WNL
RUQ US without significant abnormality
HepC Ab neg
patient without RUQ pain
follow LFT
DVT ppx hep drip
DNR/DNI - discussed in details with patient
I have spent at least 58min admitting the patient, reviewing chart, test results, communication with consultants and direct patient care
Anticipated Discharge: > 48 hours
Subjective/Interval History
-
Date of Service: August 21, 2024
Objective Data
-
Labs:
Laboratory Results
08/21/24
05:02
WBC 8.9
Hgb 10.6 L
Hct 32.8 L
Plt Count 192
Sodium 133 L
Potassium 4.2
Chloride 101
Carbon Dioxide 23
BUN 48 H
Creatinine 0.5 L
Glucose 196 H
Calcium 9.0
Total Bilirubin 1.9 H
AST 39 H
ALT 35
Alkaline Phosphatase 267 H
Vital Signs:
Vital Signs
Temp Pulse Resp BP Pulse Ox
97.7 F 98 24 120/89 92
08/21/24 12:28 08/21/24 13:00 08/21/24 13:00 08/21/24 13:00 08/21/24 13:00
I&O
08/20/24 08/21/24 08/22/24
06:59 06:59 06:59
Intake Total 194 / 217 599 / 599 360 / 360
Output Total 0 / 0 200 / 200
Balance 194 / 217 599 / 599 160 / 160
Review of Systems
-
History Source: Patient
All other systems: Reviewed and negative
Physical Exam
-
General: No Apparent Distress
HEENT: Normocephalic
Cardiac: Irregular Rhythm
GI: Soft and Nontender
Neuro: Awake, Alert, Oriented and AO x 3
Psych: Calm
[2024-08-21 17:46] LABS: Free T3 7.94 pg/ml (2.77-5.27); Free T4 4.87 ng/dl (0.78-2.19)
[2024-08-21 18:00] LABS: TSH < 0.02 uIU/ml (0.47-4.68)
--- NOTE | 2024-08-21 20:42 | PTCARENOTE ---
Received patient AAOx3, following commands, denying pain, OOB to chair. Afib 90s-120s, BP stable, normothermic. Palpable radial and pedal pulses b/l. 95% on room air, lung sounds diminished. Abdomen soft, round, hypoactive bowel sounds. Ate 100% of
dinner. Bathroom to void. PIVs patent, WNL. Call culver within reach.
[2024-08-22] VITALS (18 sets, daily range): BP systolic 90–136; BP diastolic 59–104; BMI 21.7
[2024-08-22 06:24] LABS: % Basophils 0.1 % (0-2); % Immature Granulocytes 0.3 % (0-0.5); % Lymphocytes 34.4 % (20.5-51.1); % Monocytes 10.5 % (1.7-9.3); % Neutrophils 54.7 % (42.2-75.2); Absolute Lymphocytes 3.4 10^3/uL (1.2-3.4); Absolute Neutrophils 5.4 10^3/uL (1.4-6.5); Hematocrit 32.1 % (37.0-47.0); Hemoglobin 10.6 g/dL (12.0-16.0); Mean Corpuscular Hgb 24.7 pg (27.0-31.0); Mean Corpuscular Volume 74.8 fL (81.0-99.0); Mean Platelet Volume 9.8 fL (7.4-10.4); Nucleated Red Blood Cells % 0 %; Platelet Count 160 10^3/uL (130-400); Red Blood Cell Count 4.29 10^6/uL (4.20-5.40); Red Cell Dist. Width 16.3 % (11.5-14.5); White Blood Cell Count 9.8 10^3/uL (4.8-10.8)
[2024-08-22 06:49] LABS: ALT (SGPT) 35 U/L (0-35); AST (SGOT) 44 U/L (14-36); Albumin 2.8 g/dl (3.5-5.0); Alkaline Phosphatase 243 U/L (38-126); Blood Urea Nitrogen 28 mg/dl (7-17); Calcium 8.8 mg/dl (8.4-10.2); Carbon Dioxide 29 mmol/L (22-30); Chloride 104 mmol/L (98-107); Estimated Creatinine Clearance 64 ml/min; Glucose 124 mg/dl (70-99); Magnesium 2.2 mg/dl (1.6-2.3); Phosphorus 2.2 mg/dl (2.5-4.5); Potassium 3.7 mmol/L (3.5-5.1); Sodium 138 mmol/L (135-145); Total Bilirubin 1.4 mg/dl (0.2-1.3); Total Protein 5.8 g/dl (6.3-8.2); eGFR > 60.00
[2024-08-22] MEDS: INDERAL LA 160 MG PO (07:43)
[2024-08-22] MEDS: TAPAZOLE 20 MG PO ×3 (07:43→21:22)
[2024-08-22] MEDS: PROTONIX 40 MG PO (07:43)
[2024-08-22] MEDS: MUCINEX 600 MG PO ×2 (07:43→20:00)
[2024-08-22] MEDS: DELTASONE 40 MG PO (07:43)
[2024-08-22] MEDS: ELIQUIS 5 MG PO ×2 (07:44→20:00)
[2024-08-22] MEDS: SPIRIVA RESPIMAT 2.5 MCG INH (08:05)
[2024-08-22] MEDS: LASIX 40 MG IV (08:11)
--- NOTE | 2024-08-22 08:33 | W.PN.CD ---
Addendum entered and electronically signed by Rafael Ortiz MD 08/22/24 09:56:
Discussed case with endocrinology. Per Dr. Cedillo, thyrotoxicosis has already improved but it usually takes a few days to weeks on a high dose of methimazole to get it under control. Her heart rates remain in the 100s�110s on max dose
propranolol. I am hesitant to add on additional rate control because I worry that when her thyroid function is improved, she will be bradycardic. We will tolerate her current heart rates and see her in the office in 2-4 weeks. If she is still in
atrial fibrillation at that time can consider DCCV.
Original Note:
Today's Communication / Plan
-
Continue propranolol 160mg daily. Heart rates remain above goal. Will discuss with endocrine expected timeline for improvement. Hesitant to add on more rate control given that improvement in thyroid function will likely treat this issue
Continue apixaban 5 mg twice daily for anticoagulation
Impression / Plan
-
Background: 69F with RA in remission (previously on Remicade), who presented to the emergency department with a chief complaint of weakness -> COVID-19, thyroid storm + & new AF with RVR
Atrial fibrillation with rapid ventricular response, new
-s/p diltiazem drip
-Continue propranolol 160mg daily. Heart rates remain above goal. Will discuss with endocrine expected timeline for improvement. Hesitant to add on more rate control given that improvement in thyroid function will likely treat this issue
-Oral Anticoagulation: apixaban 5 mg twice daily
-[id number]: score at least 2 (age 65-74, female gender)
-if remains in A fib at outpatient follow up, will assess for DCCV
Cardiomyopathy, EF 45-50%, also with RV dysfunction
-suspected tachy-induced in setting of A fib with RVR
-will repeat as outpatient
Hyperthyroidism/thyroid storm, per primary and endocrine
COVID-19, acute, per primary
RA, on remission, no longer on Remicade => She is aware of need to minimize NSAID on Eliquis
Transaminitis, bilirubinemia, likely in the setting of viral illness, per primary--improving
Subjective:
Denies palps. Feels improved from COVID standpoint. Telemetry with atrial fibrillation, HR 100-110s.
Physical Exam
Vital Signs/Labs
Vital Signs
Temp Pulse Resp BP Pulse Ox
97.7 F 104 18 111/67 94
08/22/24 07:41 08/22/24 08:11 08/22/24 06:00 08/22/24 08:11 08/22/24 07:42
08/21/24 08/22/24 08/23/24
06:59 06:59 06:59
Actual Weight 51.5 kg 50.3 kg
08/22/24 05:48
08/22/24 05:48
PT Cancelled 08/20/24 06:00
INR Cancelled 08/20/24 06:00
APTT Cancelled 08/20/24 16:00
Magnesium 2.2 mg/dl (1.6-2.3) 08/22/24 05:48
TSH < 0.02 uIU/ml (0.47-4.68) L 08/21/24 05:02
Free T4 4.87 ng/dl (0.78-2.19) H 08/21/24 05:02
08/19/24
11:45
Zxv-I-Dccqbkszgou Pept 1340
LAB Results
08/19/24 08/19/24 08/20/24
13:30 18:04 02:21
Troponin I Cancelled < 0.012 < 0.012
08/20/24
09:02
Troponin I < 0.012
Physical Exam
Constitutional: No acute distress and Comfortable
Cardiovascular: Pedal edema is absent, Rhythm/rate is irregular, S1S2 is normal and Murmur/rub/gallop absent
Respiratory: Respiratory effort normal and Lungs clear to auscul.
Data Reviewed
-
Date of Service: August 22, 2024
Medical Decision Making: External Notes, Independent Historian Assessment, Test Interpretation and Review of Case with other Provider
EKG: Tracing Personally Visualized and interpreted
Echo: Report Reviewed by me
X-Ray/CT/US/MRI/NUC/PET: Image Personally Visualized and interpreted
Labs: Labs Reviewed by me
--- NOTE | 2024-08-22 10:27 | PTCARENOTE ---
Patient downgraded to tele level. Vitals stable.
--- NOTE | 2024-08-22 10:49 | W.PN.HOSP.TC ---
Today's Communication/Plan
-
move to tele
if HR remains around 110 - plan to d/c in AM
Assessment / Plan
Assessment / Plan
69yo F with PMHx of cholecystectomy, RA not on any meds came with 4 weeks of generalized weakness, cough, found with A.flutter in ED. COVID-19 and thyroid storm, mild
A/P:
#Thyroid storm
Mendoza-Wartkofsky 70
Methimazole, cont steroids, propranolol
Endo consult: cont Methimazole, BB, outpatient f/u in 1 week
#New onset Afib with RVR
#Acute HFmrEF exacerbation
heparin drip
Cardiology consult: increaased propranolol, will avoid further increase accepting higher HR since expect to improve with better thyroid control so to avoid courtney.
telemetry
Echo: EF 45-50%, Mid to distal anterior and anteroseptal hypokinesis
Elevated proBNP to 1340, but with marginal low BP - possibly congestion 2/2 Afib. Will not start Lasix until HR controlled
Influenza neg
weaned off O2 on Lasix - will cont PO
#COVID-19 with cough and reactive airway disease
without pneumonia on XR
unclear start date, will not start paxlovid
procalcitonin WNL
completed steroids,
bronchodilators, antitussives and mucolytics to cont
#LLL atelectasis
no fever, no WBC, no cough - no clinical pneumonia
Incentive spirometry
#Hx of RA
in remission not on meds
#REBA
iron as outpatient, recommend EGD and colonoscopy - GI referral added
#Elevated alk.phos
#Transaminitis
#Mixed Bilirubinemia
suspect 2/2 viral disease
LDH WNL
RUQ US without significant abnormality
HepC Ab neg
patient without RUQ pain
follow LFT
DVT ppx hep drip
DNR/DNI - discussed in details with patient
I have spent at least 38min admitting the patient, reviewing chart, test results, communication with consultants and direct patient care
Anticipated Discharge: Within 24 hours
Subjective/Interval History
-
Date of Service: August 22, 2024
Objective Data
-
Labs:
Laboratory Results
08/22/24
05:48
WBC 9.8
Hgb 10.6 L
Hct 32.1 L
Plt Count 160
Sodium 138
Potassium 3.7
Chloride 104
Carbon Dioxide 29
BUN 28 H
Creatinine 0.4 L
Glucose 124 H
Calcium 8.8
Total Bilirubin 1.4 H
AST 44 H
ALT 35
Alkaline Phosphatase 243 H
Vital Signs:
Vital Signs
Temp Pulse Resp BP Pulse Ox
97.7 F 95 21 112/77 94
08/22/24 07:41 08/22/24 10:00 08/22/24 10:00 08/22/24 10:00 08/22/24 08:09
I&O
08/21/24 08/22/24 08/23/24
06:59 06:59 06:59
Intake Total 599 / 599 840 / 840
Output Total 1400 / 1400 1150 / 1150
Balance 599 / 599 -560 / -560 -1150 / -1150
Review of Systems
-
History Source: Patient
All other systems: Reviewed and negative
Physical Exam
-
General: No Apparent Distress
HEENT: Normocephalic
Respiratory: Clear to Auscultation
Cardiac: Irregular Rhythm and Tachycardic
Neuro: Awake, Alert, Oriented and AO x 3
Psych: Calm
--- NOTE | 2024-08-22 11:50 | PTCARENOTE ---
Rec'd care of patient at 0700. Patient alert and oriented. Afib on tele monitor. Rate in the 90-100's. Occasional bursts to 130-140's, nonsustained. Pulse ox 93-95% on RA. Lung sounds shallow, diminished in b/l base. IS teaching by RT. Dry cough
present with deep breathing. +BS. Last BM 08/21. Voiding via bathroom. Peripheral INTs capped. Assisted to bathroom x1RW and then to chair at 0800.
--- NOTE | 2024-08-22 14:16 | CM ---
CM following re: discharge planning.
Reviewed pt's chart, met with pt and pt's daughter Radha at bedside.
Per MD pt possibly will be ready for discharge tomorrow. Both pt and her daughter are aware, expressed their agreement. IMM reviewed, placed on chart, pt has a copy.
PT and OT evaluations noted - home PT/OT recommended. Pt is aware, expressed her agreement. A lsit of [facility] vendors provided, pt preferred [facility]. A referral to [facility] made.
Please fax discharge instructions to [facility] at [phone].
D/C plan: home with [facility] and family support. Family to transport at discharge.
CM will follow with discharge nina updates as needed.
--- NOTE | 2024-08-22 14:31 | VNURNOTE ---
Home Health Liaison spoke with patient to discuss [facility] nurse/therapy, visits, schedule and homebound status. Patient is agreeable and understands that visits at home will be 2-3 x per week to assess and teach medical management. Patient states she
has not seen her PCP in 9 years. Her daughter is calling their office to make appt. Instructed pt that [facility] cannot start services until seen by PCP or residency clinic. Patient is aware and verbalizes understanding. THOMAS Collins updated. Noted above
in referral, placed in [facility].
--- NOTE | 2024-08-22 20:55 | PTCARENOTE ---
Received patient AAOx3, denying pain, following commands, OOB to chair. Heart rate 100s-120s, occasionally jumping up to 140s/150s. BP stable, normothermic. Lung sounds diminished at the bases, 92% on room air. Abdomen soft, round, nontender,
positive bowel sounds. Last BM today, voiding in bathroom, walker to ambulate without assistance. Skin intact, some bruising throughout extremities. PIVs patent, WNL. Call culver within reach.
[2024-08-23] VITALS: BP 109/87
[2024-08-23 01:52] VITALS: BMI 20.5
[2024-08-23 04:00] VITALS: BP 110/60
[2024-08-23 08:00] VITALS: BP 107/86
[2024-08-23] MEDS: SPIRIVA RESPIMAT 2.5 MCG INH (08:24)
[2024-08-23] MEDS: PROTONIX 40 MG PO (08:26)
[2024-08-23] MEDS: INDERAL LA 160 MG PO (08:26)
[2024-08-23] MEDS: MUCINEX 600 MG PO (08:26)
[2024-08-23] MEDS: ELIQUIS 5 MG PO (08:26)
[2024-08-23] MEDS: TAPAZOLE 20 MG PO (08:27)
[2024-08-23] MEDS: TESSALON PERLES 200 MG PO ×2 (08:28→14:05)
--- NOTE | 2024-08-23 10:09 | PTCARENOTE ---
Rec'd care of patient at 0700. Patient alert and oriented. Remains in afib on tele monitor. Rate 90-110's with occasional bursts to 120-140. Lung sounds shallow, diminished throughout. Deep breathing encouraged; limited due to dry cough. Tessalon
Perles administered. +BS. Appetite good. OOB to chair for breakfast. Last BM yesterday. Voiding in bathroom. Ambulating in room with RW. No complaints. Call culver within reach.
--- NOTE | 2024-08-23 11:03 | W.PN.CD ---
Today's Communication / Plan
-
Add daily Lasix PO
Na+/fluid restriction
BMP, pBNP in 1 week
Impression / Plan
-
Background: 69F with RA in remission (previously on Remicade), who presented to the emergency department with a chief complaint of weakness -> COVID-19, thyroid storm + & new AF with RVR
Atrial fibrillation with rapid ventricular response, new
- Propranolol 160mg daily, with acceptable rate control 90-120s as we anticipate methimazole will be controlling hyperthyroidism and rates will come down
- Oral Anticoagulation: apixaban 5 mg twice daily
- [id number]: score at least 3 (HF, age 65-74, female gender)
- if remains in A fib at outpatient follow up, will assess for DCCV
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
- pBNP elevated, dyspnea (multifactorial), increasing pleural effusions
- Na+/Fluid restriction for now
- suspected tachy-induced in setting of A fib with RVR
- Focus on correcting hyperthyroidism and fast AFib
- If in f/u HF or CM persist then add more GDMT
- Add daily diuretic, hope to stop once in sinus and euthyroid
- Reevaluate EF once euvolemic and in sinus for several months
Hyperthyroidism/thyroid storm, per primary and endocrine
COVID-19, acute, per primary
RA, on remission, no longer on Remicade => She is aware of need to minimize NSAID on Eliquis
Transaminitis, bilirubinemia, likely in the setting of viral illness, per primary--improving
Subjective:
Feeling better
Physical Exam
Vital Signs/Labs
Vital Signs
Temp Pulse Resp BP Pulse Ox
97.5 F 110 16 107/86 95
08/23/24 08:51 08/23/24 08:26 08/23/24 08:00 08/23/24 08:26 08/23/24 08:29
08/22/24 08/23/24 08/24/24
06:59 06:59 06:59
Actual Weight 50.3 kg 47.6 kg
08/22/24 05:48
08/22/24 05:48
PT Cancelled 08/20/24 06:00
INR Cancelled 08/20/24 06:00
APTT Cancelled 08/20/24 16:00
Magnesium 2.2 mg/dl (1.6-2.3) 08/22/24 05:48
TSH < 0.02 uIU/ml (0.47-4.68) L 08/21/24 05:02
Free T4 4.87 ng/dl (0.78-2.19) H 08/21/24 05:02
08/19/24
11:45
Utp-B-Srdpqirnyok Pept 1340
Physical Exam
Constitutional: No acute distress
EENT: Anicteric
Cardiovascular: Rhythm/rate is irregular and S1S2 is normal
Respiratory: Respiratory effort normal and Lungs clear to auscul.
GI: Soft and Distention absent
Neuro/Psych: AO x 3
Data Reviewed
-
Date of Service: August 23, 2024
[2024-08-23 11:44] VITALS: BP 98/66
[2024-08-23] MEDS: LASIX 20 MG PO (11:46)
--- NOTE | 2024-08-23 12:25 | W.PN.HOSP.TC ---
Today's Communication/Plan
-
dc
Assessment / Plan
Assessment / Plan
69yo F with PMHx of cholecystectomy, RA not on any meds came with 4 weeks of generalized weakness, cough, found with A.flutter in ED. COVID-19 and thyroid storm, mild pulmonary congestion. Started on methimazole and propranolol. HR improved. Elqiuis
started by card - CM provided pricin days supply - $35.00 co-pay. Free 30 days coupon with $10.00 monthly coupon given to the pt and her SO. Cardiology added furosemide. In spite of mild tachy - cardiology will avoid further increase of
Propranolol accepting higher HR since expect to improve with better thyroid control so to avoid courtney. Outpatient Endocrinology eval - was informed on the patient
A/P:
#Thyroid storm
Mendoza-Wartkofsky 70
Methimazole, cont steroids, propranolol
Endo consult: cont Methimazole, BB, outpatient f/u in 1 week
#New onset Afib with RVR
#Acute HFmrEF exacerbation
heparin drip
Cardiology consult: increased propranolol, will avoid further increase accepting higher HR since expect to improve with better thyroid control so to avoid courtney.
telemetry
Echo: EF 45-50%, Mid to distal anterior and anteroseptal hypokinesis
Elevated proBNP to 1340, but with marginal low BP - possibly congestion 2/2 Afib. Will not start Lasix until HR controlled
Influenza neg
weaned off O2 on Lasix - will cont PO
#COVID-19 with cough and reactive airway disease
without pneumonia on XR
unclear start date, will not start paxlovid
procalcitonin WNL
completed steroids,
bronchodilators, antitussives and mucolytics to cont
#LLL atelectasis
no fever, no WBC, no cough - no clinical pneumonia
Incentive spirometry
#Hx of RA
in remission not on meds
#REBA
iron as outpatient, recommend EGD and colonoscopy - GI referral added
#Elevated alk.phos
#Transaminitis
#Mixed Bilirubinemia
suspect 2/2 viral disease
LDH WNL
RUQ US without significant abnormality
HepC Ab neg
patient without RUQ pain
follow LFT - improving
DVT ppx hep
DNR/DNI - discussed in details with patient
I have spent at least 38min admitting the patient, reviewing chart, test results, communication with consultants and direct patient care
Anticipated Discharge: Today
Subjective/Interval History
-
Date of Service: August 23, 2024
Objective Data
-
Vital Signs:
Vital Signs
Temp Pulse Resp BP Pulse Ox
97.4 F 108 16 98/66 96
08/23/24 11:19 08/23/24 11:46 08/23/24 11:44 08/23/24 11:46 08/23/24 11:44
I&O
08/22/24 08/23/24 08/24/24
06:59 06:59 06:59
Intake Total 840 / 840 240 / 240 490 / 490
Output Total 1400 / 1400 2049 / 2049 350 / 350
Balance -560 / -560 -1810 / -1810 140 / 140
Review of Systems
-
History Source: Patient
All other systems: Reviewed and negative
Physical Exam
-
General: No Apparent Distress
HEENT: Normocephalic
Respiratory: Clear to Auscultation
Cardiac: Irregular Rhythm
GI: Soft, Nontender and Nondistended
Genito-urinary: No Costovertebral Tender
Musculoskeletal: No Clubbing, No Cyanosis and No Edema
Neuro: Awake, Alert, Oriented and AO x 3
Psych: Calm
--- NOTE | 2024-08-23 12:26 | PTCARENOTE ---
Patient feeling tired today. Encouraged to take a nap. After nap, patient feeling better. Ambulating laps in room with RW. In chair for lunch. Vitals stable.
--- NOTE | 2024-08-23 12:30 | CM ---
Patient with Dx new Afib, who is Covid +. Room air. PT recommends HH.
Spoke with patient who was preparing for d/c. The patient says she feels ready to go home today. She is aware or [facility] referral for SN/PT. Her daughter Radha or son Breezy will provide transport home today.
Per prior CM Notes: IMM completed yesterday. [employer] rosales check done and Free Month card provided.
Per prior [facility] notes (fax [phone]): referral accepted however they cannot see the patient until she is seen by her PCP or [facility].
Meli Blank, [facility] Liaison notified of d/c today.
Plan home today with referral to [facility].
--- NOTE | 2024-08-23 12:32 | W.DCSUMMARY ---
Addendum entered and electronically signed by Carlos Kate MD 08/23/24 13:15:
Ambulating in the room without difficulty with RW as observed by RN on the day of d/c
Original Note:
Discharge Summary
Discharge Data
Date of Admission: 08/19/24
Date of Discharge: 08/23/24
-
Pending Results: No
Hospital Course
69yo F with PMHx of cholecystectomy, RA not on any meds came with 4 weeks of generalized weakness, cough, found with A.flutter in ED. COVID-19 and thyroid storm, mild pulmonary congestion. Started on methimazole and propranolol. HR improved. Elqiuis
started by card - CM provided pricin days supply - $35.00 co-pay. Free 30 days coupon with $10.00 monthly coupon given to the pt and her SO. Cardiology added furosemide. In spite of mild tachy - cardiology will avoid further increase of
Propranolol accepting higher HR since expect to improve with better thyroid control so to avoid courtney. Outpatient Endocrinology eval - was informed on the patient
I have spent at least 38min admitting the patient, reviewing chart, test results, communication with consultants and direct patient care
Patient was managed for:
#Thyroid storm with hyperthyroidism
#New onset Afib with RVR
#Acute HFmrEF exacerbation
#COVID-19 with cough and reactive airway disease
#LLL atelectasis
#Hx of RA
#REBA
#Elevated alk.phos
#Transaminitis
#Mixed Bilirubinemia
Discharge Plan
-
Patient Disposition: Home with Home Care
Discharge Diagnosis/Procedures: Afib, hyperthyroidism
Diet: Low Cholesterol
Driving Restrictions: As prior to admission
Blood Work: BMP, NT- proBMP in 1 week upon d/c with PCP
Other Services: PT
Referrals:
Francy Briggs MD [Active] - in four to six weeks (EGD, colonoscopy - REBA)
Chris Cedillo MD [Consulting Staff] - in less than 1 week (Call to confirm appointment)
Celia Daly MD [Family Provider] - in less than 1 week (BMP and NT-proBNP)
Prescriptions:
New
Eliquis 5 mg Tablet
5 mg PO BID Qty: 60 0RF
propranolol 80 mg Capsule,Extended Release 24 Hr
160 mg PO DAILY Qty: 30 0RF
furosemide 20 mg Tablet
20 mg PO DAILY Qty: 30 0RF
guaifenesin 600 mg Tablet Extended Release 12hr
600 mg PO Q12 Qty: 30 0RF
albuterol sulfate 90 mcg/actuation Hfa Aerosol Inhaler
2 puff inhalation R Q4HPRN PRN (Reason: SOB, wheezing) Qty: 8.5 0RF
pantoprazole 40 mg Tablet,Delayed Release (Dr/Ec)
40 mg PO DAILY Qty: 30 0RF
Spiriva Respimat 2.5 mcg/actuation Mist
2 puff inhalation R DAILY Qty: 4 0RF
methimazole 5 mg Tablet
20 mg PO TID Qty: 90 0RF
ferrous sulfate 325 mg (65 mg iron) tablet,delayed release (DR/EC)
325 mg PO DAILY Qty: 30 0RF
Discharge Orders:
Discharge Patient (As Directed); Ordered 08/23/24
Ordered By: Carlos Kate
Discharge Date and Time
Print Language: IVORIAN
--- NOTE | 2024-08-23 14:26 | PTCARENOTE ---
Addendum entered by Marcela Major RN 08/23/24 14:33:
Prior to discharge paperwork, patient ambulating laps in room without walker. Supervision only. Steady on feet.
Original Note:
Discharge paperwork completed with patient and patient's daughter. Clarification on follow up appointments and timing of Methimazole provided. IVs and tele pack removed. Patient transported via wheelchair to car.
== END 2024-08-23 14:42 | disposition home health service (06) | DRG 643 ==
LOC: ICU 14:03
PROVIDERS: Emergency Medicine; Physician Assistant Medical; ADMITTING PHYSICIAN Internal Medicine; CONSULT PHYSICIAN Internal Medicine Cardiovascular Disease; CONSULT PHYSICIAN Internal Medicine Endocrinology, Diabetes & Metabolism; EMERGENCY PHYSICIAN Emergency Medicine; FAMILY PHYSICIAN Internal Medicine
DX: E05.91 Thyrotoxicosis, unspecified with thyrotoxic crisis or storm (principal); I50.21 Acute systolic (congestive) heart failure; U07.1 COVID-19; I48.92 Unspecified atrial flutter; R17 Unspecified jaundice; I42.9 Cardiomyopathy, unspecified; J98.11 Atelectasis; D50.9 Iron deficiency anemia, unspecified; E86.0 Dehydration; I48.91 Unspecified atrial fibrillation; M06.9 Rheumatoid arthritis, unspecified; Z66 Do not resuscitate; Z79.899 Other long term (current) drug therapy; Z88.1 Allergy status to other antibiotic agents
CPT/HCPCS: 71045; 71046; 76700; 80053; 82248; 82728; 82977; 83540; 83550; 83615; 83735; 83880; 84100; 84145; 84439; 84443; 84481; 84484; 85025; 85027; 85610; 85730; 86803; 87502; 87811; 93005; 93306; 94640; 96361; 96374; 96376; 97163; 99291; Q9957

== ENCOUNTER → 2024-09-25 06:47 | Outpatient (REF) | payer OTHER, SELFPAY | LOC: RAD 06:47 | PROVIDERS: ATTENDING PHYSICIAN Internal Medicine Endocrinology, Diabetes & Metabolism; FAMILY PHYSICIAN Internal Medicine | DX: E05.90 Thyrotoxicosis, unspecified without thyrotoxic crisis or storm (principal) | CPT/HCPCS: 76536 ==

== ENCOUNTER → 2024-11-18 07:50 | Outpatient (REF) | payer OTHER, SELFPAY | LOC: RCS 07:50 | PROVIDERS: ATTENDING PHYSICIAN Nurse Practitioner Gerontology; FAMILY PHYSICIAN Internal Medicine | DX: I50.22 Chronic systolic (congestive) heart failure (principal) | CPT/HCPCS: 93308; 93321; 93325 ==